=== PATIENT | female | born 2000 | race Caucasian/White ===

== ENCOUNTER 2022-06-10 17:21 | Emergency (ER) | payer OTHER, SELFPAY ==
--- NOTE | ~2022-06-10 | XR_ITS ---
EXAMINATION: XR chest 1V portable 06/10/2022 17:58 INDICATION: Generalized chest pain PROCEDURE: AP portable chest COMPARISON: No prior studies for comparison. FINDINGS: The lungs are clear. The cardiomediastinal silhouette is within normal limits. There are no pleural effusions. There is no pneumothorax suspected. IMPRESSION: 1: NO ACUTE CARDIOPULMONARY DISEASE. Reviewed, dictated and finalized at location A.
--- NOTE | 2022-06-10 17:24 | ECG_ITS ---
Measurements Intervals [place] Rate: 81 P: 16 IA: 146 QRS: 41 QRSD: 81 T: 19 QT: 368 QTc: 428 Interpretive Statements SINUS RHYTHM WITH SINUS ARRHYTHMIA NORMAL ELECTROCARDIOGRAM NO PREVIOUS ECG AVAILABLE FOR COMPARISON Electronically Signed On 06-11-2022 7:03:18 CDT by Ulisses Salmeron M.D.
[2022-06-10 17:25] VITALS: BP 143/84; PULSE 85; RESP 14; TEMP 36.8; O2SAT 99
[2022-06-10 17:52] LABS: Basophils Percent Auto 0.3 % (0.2-1.2); Eosinophils Absolute Auto 0.2 K/mm3 (0-0.3); Eosinophils Percent Auto 1.5 % (0-4.4); Hematocrit 41.1 % (37.0-47.0); Hemoglobin 14.1 g/dL (12.0-15.0); Immature Granulocyte Absolute 0.05 K/mm3 (0.00-0.031); Immature Granulocyte Percent A 0.4 % (0-0.5); Lymphocytes Absolute Auto 1.84 K/mm3 (0.9-3.2); Lymphocytes Percent Auto 15.3 % (18.3-44.2); Mean Corpuscular HGB Conc 34.3 g/dl (32-36); Mean Corpuscular Hemoglobin 30.6 pg (26-34); Mean Corpuscular Volume 89.2 fl (80-100); Mean Platelet Volume 10.3 fl (7.4-10.4); Monocytes Absolute Auto 1.1 K/mm3 (0.1-0.6); Monocytes Percent Auto 9.3 % (2.6-8.5); Neutrophils Absolute Auto 8.8 K/mm3 (1.3-6.7); Neutrophils Percent Auto 73.2 % (45.5-73.1); Platelet Count Result 220 k/mm3 (150-375); Red Blood Count 4.61 M/mm3 (4.2-5.4); Red Cell Distribution Width 12.5 % (11.5-14.5)
--- NOTE | 2022-06-10 17:53 | ED.CHESTPAIN ---
HPI - Chest Pain General Chief Complaint: Chest Pain Stated Complaint: chest pain Time Seen by Provider: 06/10/22 17:42 History of Present Illness HPI narrative: 22-year-old female w/o medical history reports for evaluation of sore throat and productive cough x1 week and chest pain that started today 6 hours ago. Pt reports she was sitting at home when the chest pain started, it is substernal, and only present when she swallows and coughs. Activity and inspiration do not make the chest pain occur. Pain does not radiate and is not worse with eating. She does not have a cardiac history. Reports this does not feel like heartburn. Denies dyspnea, hemoptysis, headache, vision changes, abdominal pain, n/v/d, focal numbness or weakness, fever, body aches, chills. LMP 2019, she has a nexplanon in place. Related Data Home Medications Medication Instructions Recorded Confirmed No Home Medications 06/10/22 06/10/22 Allergies Allergy/AdvReac Type Severity Reaction Status Date / Time No Known Allergies Allergy Unverified 03/27/18 17:01 Review of Systems Review of Systems: CONSTITUTIONAL: Denies fever, chills EYES: Denies visual changes, redness, or discharge. ENT: Denies rhinorrhea, congestion, sore throat, or otalgia. CARDIOVASCULAR: See HPI RESPIRATORY: See HPI GASTROINTESTINAL: Denies abdominal pain, nausea, vomiting, or diarrhea. GENITOURINARY: Denies dysuria or hematuria. SKIN: Denies rash or itching. MUSCULOSKELETAL: Denies back pain, joint pain, or myalgia. NEUROLOGIC: Denies headache, numbness, dizziness, or weakness. PSYCHIATRIC: Denies anxiety or depression. Exam Narrative: GENERAL: Well-appearing, well-nourished, and in no acute distress. Patient resting comfortably in the exam bed. She is pleasant and conversational. Speaking in full sentences. HEAD: Normocephalic, atraumatic. EYES: PERRLA and EOMI. ENT: Nares clear, no rhinorrhea or epistaxis. Mucous membranes moist. Oropharynx without tonsillar hypertrophy exudate or other lesions. No erythema or exudates to tonsils or posterior pharynx. Bilateral TMs pearly solorzano nonbulging NECK: Supple. No adenopathy or masses. CHEST: Clear to auscultation. No respiratory distress. No wheezes rales or rhonchi. No pain with palpation of chest wall. HEART: Regular rate and rhythm. No murmur heard. Normal peripheral pulses. ABDOMEN: Soft, nontender, nondistended, normal active bowel sounds. EXTREMITIES: Normal range of motion. No edema. SKIN: Warm, dry, no rash. NEURO: No focal deficits. Alert and oriented x3. PSYCH: Normal mood and affect. Course Vital Signs Vital signs: Vital Signs Temperature 98.3 F 06/10/22 17:25 Pulse Rate 85 06/10/22 17:25 Respiratory Rate 14 06/10/22 17:25 Blood Pressure 143/84 H 06/10/22 17:25 Pulse Oximetry 99 06/10/22 17:25 Oxygen Delivery Room Air 06/10/22 17:25 Temperature 98.3 F 06/10/22 17:25 Pulse Rate 85 06/10/22 17:25 Respiratory Rate 14 06/10/22 17:25 Blood Pressure 143/84 H 06/10/22 17:25 Pulse Oximetry 99 06/10/22 17:25 Oxygen Delivery Room Air 06/10/22 17:25 MDM - Chest Pain Lab Data 06/10/22 17:38 06/10/22 17:38 Labs: Lab Results 06/10/22 06/10/22 06/10/22 Range/Units 17:38 17:38 17:38 WBC Pending RBC Pending Hgb Pending Hct Pending MCV Pending MCH Pending MCHC Pending RDW Pending Plt Count Pending MPV Pending Immature Gran % (Auto) Pending Neut % (Auto) Pending Lymph % (Auto) Pending Dolores % (Auto) Pending Eos % (Auto) Pending Baso % (Auto) Pending Lymph # (Auto) Pending Dolores # (Auto) Pending Eos # (Auto) Pending Baso # (Auto) Pending Abs Immat Gran (auto) Pending Absolute Neuts (auto) Pending Absolute Nucleated RBC Pending Nucleated RBC % Pending PT Pending INR Pending APTT Pending Sodium Pending
[2022-06-10 17:58] LABS: Alanine Aminotransferase 33 U/L (6-35); Albumin Level 4.4 g/dL (3.5-5.1); Alkaline Phosphatase 99 U/L (38-126); Anion Gap 10 mmol/L (8-16); Aspartate Amino Transferase 27 U/L (14-36); Bilirubin,Total 0.5 mg/dL (0.2-1.3); Blood Urea Nitrogen 9 mg/dL (7-17); Calcium 9.2 mg/dL (8.4-10.2); Carbon Dioxide 26 mmol/L (22-30); Chloride 103 mmol/L (98-107); Estimated CRCL calculation 168 ml/min; Estimated Glomerular Filt Rate > 60; Glucose 145 mg/dL (65-110); Lipase 55 U/L (23-300); Potassium 3.6 mmol/L (3.4-5.0); Sodium 139 mmol/L (137-145)
[2022-06-10 18:01] LABS: INR 1.2; Prothrombin Time 14.4 Seconds (11.1-14.7)
[2022-06-10 18:02] LABS: Partial Thromboplastin Time 31.5 SECONDS (22.3-36.8)
[2022-06-10] MEDS: ACETAMINOPHEN 500 MG TABLET 1000 MG PO (18:04)
[2022-06-10 18:09] LABS: Troponin I < 0.012 ng/mL (0.000-0.034)
[2022-06-10 18:30] VITALS: BP 125/81; PULSE 95; RESP 16; O2SAT 97
--- NOTE | 2022-06-10 18:41 | ED.GENADULT ---
HPI - General Adult General Chief complaint: Chest Pain Stated complaint: chest pain Time Seen by Provider: 06/10/22 17:42 Source: patient Mode of arrival: ambulatory Limitations: no limitations History of Present Illness HPI narrative: Patient is 22 years old white female came to the emergency room by private car complaining of sharp stabbing chest pain that started around noon today worse with coughing. Patient been coughing for 1 week, producing mucus, got worse over the last 2 days. Patient's daughter have similar symptoms. Patient also complaining of nasal and postnasal discharge with sinus pressure. Been taking [id number] medication without improvement. She denies any shortness of breath. Related Data Allergies Allergy/AdvReac Type Severity Reaction Status Date / Time No Known Allergies Allergy Unverified 03/27/18 17:01 Review of Systems Review of Systems: All systems reviewed & are unremarkable except as noted in HPI and below Exam Narrative: General appearance: Well-developed, well-nourished Skin: Normal color Head: Normocephalic, nontraumatic Eyes: Clear conjunctiva ENT: Oropharynx normal, ears normal, nose normal Neck: Supple, nontender Chest and respiratory: Airway patent, no respiratory distress, no accessory muscle use Heart: Regular rate/rhythm Abdomen: Soft, nontender, no organomegaly, quiet bowel sounds Vascular: Normal peripheral pulses, normal capillary refill. Musculoskeletal: Normal range of motion, nontender back Neurologic: Alert and oriented ?3, TRACK LAYER HEAD is normal as tested, no gross motor deficit Course Reevaluation(s) Reevaluation #1: Patient feels much better after 1000 mg of Tylenol Date: 06/10/22 Time: 18:44 Vital Signs Vital signs: Vital Signs Temperature 36.8 C 06/10/22 17:25 Pulse Rate 85 06/10/22 17:25 Respiratory Rate 14 06/10/22 17:25 Blood Pressure 143/84 H 06/10/22 17:25 Pulse Oximetry 99 06/10/22 17:25 Oxygen Delivery Room Air 06/10/22 17:25 Temperature 36.8 C 06/10/22 17:25 Pulse Rate 85 06/10/22 17:25 Respiratory Rate 14 06/10/22 17:25 Blood Pressure 143/84 H 06/10/22 17:25 Pulse Oximetry 99 06/10/22 17:25 Oxygen Delivery Room Air 06/10/22 17:25 Medical Decision Making MDM Narrative Medical decision making narrative: Patient presents with cold symptoms that started 1 week ago, with a lot of productive cough of mucus, lately intermittent sharp chest pain, which high likely secondary to the coughing. Chest wall muscular strain/sprain is my concern plus pleurisy. Blood work-up showed no acute abnormalities, chest x-ray showed no acute cardiopulmonary disease. EKG on arrival showed normal sinus rhythm without any abnormality. The plan to discharge patient home on Tessalon and Atrovent nasal spray. Differential Diagnosis Differential Diagnosis: Upper respiratory viral infection, pneumonia. Vital Signs Vital Signs: Vital Signs Temperature 36.8 C 06/10/22 17:25 Pulse Rate 85 06/10/22 17:25 Respiratory Rate 14 06/10/22 17:25 Blood Pressure 143/84 H 06/10/22 17:25 Pulse Oximetry 99 06/10/22 17:25 Oxygen Delivery Room Air 06/10/22 17:25 Temperature 36.8 C 06/10/22 17:25 Pulse Rate 85 06/10/22 17:25 Respiratory Rate 14 06/10/22 17:25 Blood Pressure 143/84 H 06/10/22 17:25 Pulse Oximetry 99 06/10/22 17:25 Oxygen Delivery Room Air 06/10/22 17:25 Lab Data 06/10/22 17:38 06/10/22 17:38 Labs: Lab Results 06/10/22 06/10/22 06/10/22 Range/Units 17:38 17:38 17:38 WBC 12.0 H (4.5-10.0) K/mm3 RBC 4.61 (4.2-5.4) M/mm3 Hgb 14.1 (12.0-15.0) g/dL Hct 41.1 (37
[2022-06-10 18:43] LABS: Strep Group A RT-PCR NOT DETECTED (Negative)
[2022-06-10 18:54] LABS: Influenza A QL RT-PCR Negative (Negative); Influenza B QL RT-PCR Negative (Negative); SARS-CoV-2 RNA PCR Negative
[2022-06-10 19:00] VITALS: BP 126/81; PULSE 105; RESP 18; O2SAT 98
== END 2022-06-10 19:00 | disposition home or self-care (01) ==
PROVIDERS: Physician Assistant; Emergency Provider Emergency Medicine
DX: J06.9 Acute upper respiratory infection, unspecified (principal); R07.89 Other chest pain
CPT/HCPCS: 36415; 71045; 80053; 83690; 84484; 85025; 85610; 85730; 87636; 87651; 93005; 99284; A9270

== ENCOUNTER 2025-01-28 10:16 | Outpatient (CLI) | payer BC, SELFPAY ==
--- NOTE | ~2025-01-28 | US_ITS ---
EXAMINATION: US OB <= 14 weeks fetus DATE: 01/28/2025 10:39 INDICATION: Uncertain dating of TECHNIQUE: Real-time pelvic ultrasound utilizing both a transvaginal and transabdominal probe was performed. The interpreting radiologist was not present for the study. COMPARISON: None. FINDINGS: The uterus measures 16.5 x 7.0 x 11.9 cm. There is a single living fetus in variable presentation. The placenta is anterior and not low-lying with caudal margin 5.6 cm from the internal cervical os. heart rate is 154 beats per minute (bpm). The amniotic fluid volume is subjectively normal. The following biometric data were obtained: BPD: 2.6 cm -> 14 weeks 4 days Head circumference: 10.0 cm -> 14 weeks 5 days Abdominal circumference: 8.2 cm -> 14 weeks 4 days Femur length: 1.3 cm -> 13 weeks 6 days These measurements are concordant. Head circumference to abdominal circumference ratio: 1.22 (normal range 1.08-1.37). Estimated weight: 94 g (+/-) 14 g. IMPRESSION: 1. Single living fetus in vertex presentation with heart rate of 154 bpm. 2. Gestational age by ultrasound of 14 weeks 3 day(s) +/- 7 days with ultrasound estimated date of delivery (TERRENCE) of 07/26/2025. Estimated weight is 19th percentile by Hadlock criteria when 07/25/2025 is used as the TERRENCE. Please correlate with clinical information or earlier ultrasounds for most accurate TERRENCE. Reviewed, dictated and finalized at location A. [employer] IMPRESSION: 1. Single living fetus in vertex presentation with heart rate of 154 bpm. 2. Gestational age by ultrasound of 14 weeks 3 day(s) +/- 7 days with ultrasoun d estimated date of delivery (TERRENCE) of 07/26/2025. Estimated weight is 19th percentile by Hadlock criteria when 07/25/2025 is used as the TERRENCE. Please correla te with clinical information or earlier ultrasounds for most accurate TERRENCE.
== END 2025-01-28 10:17 | disposition home or self-care (01) ==
LOC: MICIMG 10:17
PROVIDERS: PCP Obstetrics & Gynecology Gynecology; Visit Provider Obstetrics & Gynecology Gynecology
DX: Z36.87 Encounter for antenatal screening for uncertain dates (principal)
CPT/HCPCS: 76801

== ENCOUNTER 2025-02-11 07:00 | Outpatient (CLI) | payer BC, SELFPAY ==
[2025-02-11 09:26] LABS: Glucose 1 Hour 142 mg/dL
[2025-02-11 10:31] LABS: Glucose 2 Hour 120 mg/dL
== END 2025-02-11 07:01 | disposition home or self-care (01) ==
PROVIDERS: PCP Obstetrics & Gynecology Gynecology
DX: Z13.0 Encounter for screening for diseases of the blood and blood-forming organs and certain disorders involving the immune mechanism (principal); Z86.32 Personal history of gestational diabetes; Z79.01 Long term (current) use of anticoagulants
CPT/HCPCS: 36415; 82951; 83020; 85660